=== PATIENT | female | born 1965 | race Caucasian/White ===

== ENCOUNTER 2018-01-28 15:59 | Inpatient (IN) ==
[2018-01-28] MEDS ORDERED: NORMAL SALINE 10 ML SYRINGE FLUSH IVP PRN ×2 (16:08→18:48)
[2018-01-28] MEDS ORDERED: Sodium Chloride 0.9% 1,000 ML PRIMARY IV ONE ×5 (16:08→22:13)
--- NOTE | 2018-01-28 16:11 | EKG ---
[address] [address] Measurements Intervals [place] Rate: 75 P: 69 [place]: 182 QRS: 34 QRSD: 81 T: 59 QT: 375 QTc: 405 Interpretive Statements SINUS RHYTHM WITH MARKED SINUS ARRHYTHMIA No previous ECG available for comparison Electronically Signed On 01-29-18 08:13:39 MDT by Ramírez Naidu MD [email or web address]
--- NOTE | 2018-01-28 16:27 | PDOC ---
General Adult HPI - General Chief Complaint: Palpitations Stated Complaint: "VERY ILL AND WHITE" THINKS HAVING A NM Date Seen by Provider: 01/28/18 Time Seen by Provider: 16:00 Source: POSITIVE: Patient Exam Limitations: POSITIVE: No limitations Nurse's Notes Reviewed & Considered: Yes - History of Present Illness Initial Comment: The patient is a 52-year-old female who is brought to the emergency department by EMS with complaints of weakness and lightheadedness. She states that she has not been feeling well for the past several days. She states that this morning she has had some epigastric abdominal pain. She states that despite not feeling well she went to work. While there she apparently became very weak and diaphoretic. She was concerned that she might be having a heart attack and EMS was called. She states that she has a prior history of heart attack 8 years ago that was treated in [place]. She states she did not have any stents or cardiac evaluation at that time. She states that that heart attack was stress related. Her family states that she has been under a lot of stress recently especially at work. Twelve-lead EKG done per EMS showed normal sinus rhythm with no acute ST segment changes. When I first evaluated her she denied any chest pain although she is describing some pain in the epigastric region. She was sick to her stomach and vomited shortly after EMS arrived. An IV was established and she was given Zofran. Her blood sugar was found to be in the 190s when EMS arrived. She was not hypotensive or tachycardic. She states that she takes medicine for thyroid. Have you received a tetanus shot in the past 10 years?: Unknown - Patient Home Medications Home Medications: Home Medications Levothyroxine Sodium [Synthroid] 125 mcg PO DAILY 01/28/18 - Patient Allergies Allergies/Adverse Reactions: Allergies 3 Allergy/AdvReac Type Severity Reaction Status Date / Time Latex, Natural Rubber AdvReac HIVES Verified 01/28/18 16:25 ROS - Limitations ROS Limitations: Other (please comment) (Patient is awake and answers questions however she is somewhat slow to answer) Constitution: DENIES: Fever Cardiovascular: REPORTS: Other (Her states that her blood pressure normally runs low). DENIES: Chest Pain, Heart Palpitations Respiratory: DENIES: Shortness Of Breath Neurological: REPORTS: Dizziness, Weakness (Generalized weakness). DENIES: Numbness, Fainting, Seizure Activity Gastrointestinal: REPORTS: Abdominal Pain, Nausea, Vomitting. DENIES: Diarrhea , Black Stools, Bloody Stools Musculoskeletal: REPORTS: Denies MS Symptoms Eyes: REPORTS: Denies Symptoms ENT: REPORTS: Denies Symptoms General Adult Exam - General Appearance General Appearance: POSITIVE: Other (The patient is awake and answers questions however she does appear acutely ill) - HEENT HEENT: POSITIVE: Head Inspection Nml, Eyes Inspection Nml, Ears Inspection Nml, Pharynx Inspect. Nml, Dry Mucous Membranes - Neck Neck: POSITIVE: Normal Inspection. NEGATIVE: Lymphadenopathy - Respiratory Respiratory: POSITIVE: No Respiratory Distress, Breath Sounds Normal - Cardiovascular Cardiovascular: POSITIVE: Regular Rate & Rhythm, No Murmur - Abdomen Abdomen: Soft: (All Quadrants), Normal Bowel Sounds: (All Quadrants), No Palpabale Mass: (All Quadrants), No Distention: (All Quadrants) Additional Abdominal Details: She does have tenderness in the epigastric region without guarding or rebound tenderness. - Skin Skin: POSITIVE: Normal Color, No Rash - Extremities Extremity: Normal ROM: (All Extremities), Normal Inspection: (All Extremities) - Neurological / Psychological Neurological: POSITIVE: Other (She has no focal neurologic deficits however she does have significant generalized weakness and finds it difficult to even raise her legs up off the bed) General Adult Progress - Results Reviewed by me Xrays/CTs/US Reviewed by me: Yes Discussed with Radiologist: Yes Radiology Findings: Initial portable chest x-ray is unremarkable. CT scan of her head shows no acute intracranial findings per radiologist, spherical lesion in the scalp likely secondary to sebaceous cyst. CT PE protocol of the chest shows no evidence of PE or any other acute findings per radiologist. CT scan of the abdomen and pelvis reveals: The lithiasis without evidence of cholecystitis. She also has ovarian cysts on both ovaries which are less than 3 cm, no other acute intra-abdominal findings per radiologist. CBC and BMP: 01/28/18 15:50 01/28/18 16:25 EKG Interpreted/Reviewed By Me:: Yes EKG Interpretation:: POSITIVE: Normal Sinus Rhythm, Normal Rate, Normal QRS, Normal ST/T - Patient's Progress MDM / ED Course: Initially the patient is normotensive with a blood pressure of 106/70 and her O2 sats are in the upper 90s to 100% on room air. Her pulse is in the 70s to 80s. Initial 12-lead EKG shows normal sinus rhythm with no acute ST segment or T-wave changes. She was given 1 L bolus of normal saline. - Consult Counseled: POSITIVE: Patient, Family, RE: Lab Results, RE: Radiology Results, RE : DX, RE: Need for F/U Patient Care Time - Estimated PCT Patient Care Time (In Minutes): 35 Vital Signs - Recent Vital Signs Vital Signs: Vital Signs (Last 8 hours) Temp Pulse Pulse Resp BP BP Pulse Ox 01/28/18 17:32 78 14 100/61 97 01/28/18 17:30 72 17 96 01/28/18 17:28 80 12 96 01/28/18 17:26 75 7 L 96 01/28/18 17:24 69 18 96 01/28/18 17:22 68 16 97 01/28/18 17:20 76 17 95 01/28/18 17:18 72 18 114/43 96 01/28/18 17:14 74 18 95 01/28/18 17:12 77 18 96 01/28/18 17:10 73 17 91 01/28/18 17:08 83 24 98 01/28/18 17:06 76 17 96 01/28/18 17:04 81 19 97 01/28/18 17:02 85 11 L 110/49 97 01/28/18 17:00 80 11 L 95 01/28/18 16:58 77 19 94 01/28/18 16:56 90 11 L 97 01/28/18 16:54 82 17 96 01/28/18 16:52 83 12 100 01/28/18 16:50 103 H 18 98 01/28/18 16:46 83 11 L 109/57 98 01/28/18 16:44 97 12 97 01/28/18 16:42 99 12 96 01/28/18 16:40 110 H 10 L 69 01/28/18 16:38 106 H 13 94 01/28/18 16:36 87 10 L 98 01/28/18 16:34 98 24 98 01/28/18 16:32 102 H 22 107/64 98 01/28/18 16:30 95 16 99 01/28/18 16:28 99 16 99 01/28/18 16:26 97 14 95 01/28/18 16:24 99 7 L 101/63 97 01/28/18 16:22 99 45 H 99 01/28/18 16:20 101 H 27 H 96 01/28/18 16:18 19 01/28/18 16:14 81 12 99 01/28/18 16:12 96 24 99 01/28/18 16:10 83 27 H 97 01/28/18 16:08 91 47 H 104/67 100 01/28/18 16:05 79 100 01/28/18 15:59 96.5 F L 81 18 104/67 97 - VS Reviewed Vital Signs Reviewed: Yes Discharge Clinical Impression: Near syncope, Epigastric abdominal pain, Vomiting Cholelithiasis Qualifiers: Cholelithiasis location: gallbladder Cholecystitis presence: without cholecystitis Biliary obstruction: without biliary obstruction Qualified Code(s) : K80.20 - Calculus of gallbladder without cholecystitis without obstruction Discharge Disposition: Admit to Inpatient Condition: Fair Date Decision to Admit to Inpatient: 01/28/18 Time Decision to Admit to Inpatient: 18:00
[2018-01-28] MEDS ORDERED: fentaNYL Inj 100 MCG/2 ML VIAL IVP ONE (16:28)
[2018-01-28 16:37] LABS: BASOPHILS # (AUTO) 0.08 10*3/UL; BASOPHILS % (AUTO) 0.6 % (0-1); EOSINOPHILS # (AUTO) 0.12 10*3/UL; EOSINOPHILS % (AUTO) 0.9 % (0-8); Hematocrit [HCT] 38.6 % (37.0-47.0); Hemoglobin [HGB] 13.4 g/dL (12.0-16.0); LYMPHOCYTES # (AUTO) 2.87 10*3/uL; MEAN CORPUSCULAR HEMOGLOBIN 30.2 PG (27-31); MEAN CORPUSCULAR HGB CONC 34.7 g/dL (33-37); MEAN CORPUSCULAR VOLUME 86.9 FL (81-99); MEAN PLATELET VOLUME 10.5 FL (7.4-12.2); MONOCYTES # (AUTO) 0.64 10*3/UL (0.3-0.8); NEUTROPHILS # (AUTO) 9.13 10*3/UL; RED BLOOD COUNT 4.44 10^6/uL (4.20-5.40)
[2018-01-28 16:39] LABS: PLATELET MORPHOLOGY COMMENT NORMAL MORPHOLOGY (NORM); RBC MORPHOLOGY COMMENT NORMAL MORPHOLOGY (NORM); WBC MORPHOLOGY COMMENT NORMAL MORPHOLOGY (NORM)
[2018-01-28 16:41] LABS: LIPASE 97 IU/L (23-300)
[2018-01-28 16:43] LABS: BLOOD UREA NITROGEN 14 mg/dL (7-22); SERUM ALBUMIN 4.4 g/dL (3.5-4.8)
--- NOTE | 2018-01-28 17:06 | DI ---
AP CHEST X-RAY, 01/28/2018 4:08 PM : Clinical History: Weakness. Epigastric pain. Previous Exam: None at this facility. There is no acute soft tissue or bony abnormality. Heart size is normal. There are slight increased m arkings behind the left heart, consistent with atelectasis. Mediastinal structures are normal. There are no pulmonary nodules. Reading: Normal chest x-ray.
--- NOTE | 2018-01-28 18:23 | DI ---
CT HEAD SCAN WITHOUT IV CONTRAST, 01/28/2018 4:08 PM : Clinical History: Generalized weakness. Previous Exam: None at this facility. Scans are obtained from the foramen magnum to the vertex without IV contrast. The 4th, 3rd, and lateral ventricles are of normal size, shape, position, and contour for the patient 's age. There are no abnormal areas of increased or decreased density. There is no significant atroph y. There are no extracerebral mantles or shift of the midline structures. Bone window evaluation is n ormal. The paranasal sinuses are normal. There is a 12 mm nodule of intermediate density located in t he subcutaneous fat of the posterior scalp at the junction between the occipital and parietal bones j ust to the left of midline. This may represent a sebaceous cyst. READIN. Normal non contrast CT head scan. 2. There is a 12 mm spherical lesion in the subcutaneous fat of the scalp just to the left of midlin e in the occipital parietal region. This may represent a sebaceous cyst.
--- NOTE | 2018-01-28 18:31 | DI ---
CT ANGIOGRAM OF THE CHEST, 01/28/2018 4:49 PM : Clinical History: Epigastric pain. Elevated D-dimer test. Previous Exam: None at this facility. Scans are performed from the base of the neck to the lower lung bases with IV contrast. 90 mL of Isov ue 370 was injected IV. Proprietary automated bolus tracking software was not used to verify the vitaliy ng of the injection. The base of the neck and thoracic inlet are normal. There are no abnormal axillary, supraclavicular, mediastinal, or hilar nodes. The heart is normal. Scan artifacts are generated by the patient's arms as well as the high density contrast. The pulmonary arteries are normal. There is no pulmonary arteri al hypertension. There is no evidence of pulmonary embolism or pulmonary infarction. The lungs are cl ear and there are no pulmonary nodules or masses. READIN. Normal CTA of the chest. There are no pulmonary emboli or pulmonary infarcts. 2. There is no acute infiltrate or effusion.
--- NOTE | 2018-01-28 18:41 | DI ---
CT ABDOMEN SCAN WITH IV CONTRAST, 01/28/2018 4:50 PM : Clinical History: Epigastric pain. Previous Exam: None at this facility. Scans are performed from the lower lung bases through the liver and kidneys with IV contrast. This is the same bolus of contrast used for the CT angiogram of the chest. No oral or rectal contrast was or dered. The lung bases are clear. The liver is normal. There are calcified laminated gallstones present, with out evidence of acute cholecystitis. The stomach is grossly normal and there is no free air. There is no abnormality of the spleen, pancreas, and adrenal glands. Both kidneys are normal in size, shape, position and contour. There is no hydronephrosis or hydroureter. No renal or ureteral calculi are pre sent. There are no abnormal retrocrural or periaortic nodes. No ascites is present. READIN. Cholelithiasis without evidence of cholecystitis. 2. The remainder the study is normal. CT PELVIS SCAN WITH IV CONTRAST, 01/28/2018 4:50 PM: Clinical History: See above. Previous Exam: None at this facility. Scans are performed from just superior to the umbilicus to the symphysis pubis with IV contrast. This is the same bolus of contrast used for the CT scans of the chest and abdomen. Scans through the lower abdomen and pelvis show no masses, enhancing lesions, or abnormal fluid colle ctions. There is no adenopathy. The appendix is normal. The small bowel, terminal ileum, and ileoceca l valve are normal. The colon is also normal. There is a very small umbilical hernia through which on ly mesenteric fat has herniated. The uterus is enlarged and measures 55 x 70 x 110 mm in the central uterine stripe is probably in the range of 15 mm. There is a low-density ovoid structure in the locat ion of the right ovary and this measures approximately 35 x 35 x 50 mm. There is a similar low-densit y lesion associated with the left ovary and this measures approximately 25 mm in diameter. READIN. There is enlargement of the uterus with the central uterine stripe measuring approximately 15 mm. 2. There are 2 low-density cystic-type lesions in the pelvis. On the right side, the lesion measures 35 x 35 x 50 mm and is consistent with a cyst of the right ovary. On the left side, there is a simil ar low-density lesion measuring 25 mm in diameter consistent with a left ovarian cyst.
[2018-01-28] MEDS ORDERED: CALCIUM CARBONATE 500 MG (TUMS) CHEWABLE TABLET PO PRN (18:48)
[2018-01-28] MEDS ORDERED: LIDOCAINE W/ SODIUM BICARB 0.5 ML SYR SUBD PRN (18:48)
[2018-01-28] MEDS ORDERED: LIDOCAINE HCL 2 % 10 ML JELLY URO-JECT TOPICAL PRN (19:58)
--- NOTE | 2018-01-28 20:44 | PDOC ---
HPI - History of Present Illness Date of Service: 01/28/18 Time of Service: 20:38 Chief Complaint: Altered with vomiting History of Present Illness: This very pleasant 52-year-old female that has hypothyroidism and just recently moved to [facility] and the [facility] this past May. She is accompanied by her here. It was reported that she works at the [employer], a restaurant in [place], and she had onset of vomiting, diaphoresis, and was brought into the emergency room for evaluation. Here, she complained of some epigastric pain and total body aches. The family reported that she's had fevers as high as 101 in the last few weeks and has had some headaches. The patient is very disoriented when I see her and quite dehydrated. She complains of total body aches but otherwise thinks she still at work and does not really answer questions, otherwise. She is dilated pupils that are responsive to light, but she has nystagmus on examination. Although she responds to verbal stimulation, she does not always answer questions appropriately. In my discussion with the patient's , the patient has not been feeling well the last few weeks. She's been complaining of increased back pain and total body aches. There were no other symptoms of nausea or vomiting prior. She reportedly does get cold sores. Outside of coming into the emergency room tonight, there were no other interventions. In the emergency room, she was worked up as a possible syncopal and/or chest pain type patient. A CT scan was found to be negative for pulmonary emboli, initial workup was negative for acute myocardial infarction, head CT scan was negative for any bleed or other issues, and a CT scan of the abdomen due to the abdominal pain showed on pelvic films and enlarged uterus with increased uterine stripe and some ovarian cysts, most likely. Past Medical History Medical History: 1. Hypothyroidism Surgical History: No prior surgeries. In my discussion with the family. She had some sort of LP in the past that caused a CODE BLUE. Apparently, I do not know the details of that. Pertinent Family History: No reported family history of heart disease or diabetes. In discussion with the patient's . I could not obtain this information from the patient. Past Social History: Smokes daily. Rarely drinks alcohol. . Has adult children that are described as healthy. 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 Moved to [place] from [place] and May 2017. Tobacco Use: Current Every Day Smoker In the Past 12 Months, Have Used or Abuse Any of the Following Substance: None Alcohol Use: Rarely Medication / Allergies Home Medications: Home Medications 3 Medication Instructions Recorded Confirmed Type Levothyroxine Sodium [Synthroid] 125 mcg PO DAILY 01/28/18 01/28/18 History Allergies/Adverse Reactions: Allergies 3 Allergy/AdvReac Type Severity Reaction Status Date / Time Latex, Natural Rubber AdvReac HIVES Verified 01/28/18 16:25 Review of Systems - Review of Systems ROS Unobtainable: Due to Mental Status (I could not obtain a complete review systems due to the patient's altered mental status and confusion. When I talked to the patient's , outside of total body aches, headaches, fevers and epigastric pain today with vomiting and marked diaphoresis, the review systems is negative.) Exam - Vitals Vital Signs: Vital Signs Height 5 ft 6 in Weight 183 lb 12.8 oz Vital Signs - Last Taken Temperature 96.5 F L 01/28/18 15:59 Pulse Rate 78 01/28/18 17:32 Respiratory Rate 14 01/28/18 17:32 Blood Pressure 100/61 01/28/18 17:32 Pulse Ox 97 01/28/18 17:32 - General Additional General Exam Details: The patient is quite dehydrated, has bone dry mucous membranes. Positive skin turgor - Head Head Exam: Normal Inspection, Normocephalic, Atraumatic - Eye Eye Exam: POSITIVE: No Scleral Icterus - ENT ENT Exam: POSITIVE: Mucous Membranes Dry - Neck Neck Exam: Normal Inspection, No Tenderness, No Lymphadenopathy, No Thyromegaly - Respiratory Respiratory Exam: POSITIVE: Clear to Auscultation - Bilaterally, Breathing Non Labored - Cardiovascular Cardiovascular Exam: POSITIVE: RRR, No Murmur, No Clicks, No Gallops, No Rubs, No JVD - GI/Abdominal GI/Abdominal Exam: POSITIVE: Normal Bowel Sounds, Non Distended, Soft Additional GI/Abdominal Exam Details: Has slight grimace with palpation to the epigastric area - Rectal Rectal Exam: POSITIVE: Deferred - External Exam: POSITIVE: Deferred Exam: POSITIVE: Ann Catheter in Place - Extremities Extremities Exam: POSITIVE: No Clubbing Present, No Edema Present, No Cyanosis Present - Back Back Exam: POSITIVE: No CVA Tenderness - Neurological Neurological Exam: POSITIVE: Alert, No Facial Droop, Speech Intact / Clear, Altered Additional Neurological Exam Details: Has nystagmus. Can move extremities but every time she moves, she moans in pain. She does not have jolt accentuation sign. She has some increase in her head pain when she flexes her chin to her chest. She has some increase in her back pain when she flexes her knees. - Integumentary Integumentary Exam: POSITIVE: Normal Color, Warm, Dry, Intact Additional Integumentary Exam Details: Positive skin turgor suggesting dehydration. Has sebaceous cyst on the right upper edge of the scapula. - Central Line Examination Central Line Present on Admission: No Results - Labs CBC and BMP: 01/28/18 15:50 01/28/18 16:25 Additional Lab Results: Laboratory Results 01/28/18 01/28/18 01/28/18 Range/Units 15:50 15:50 16:25 WBC 12.87 H (4.8-10.8) 10^3/uL RBC 4.44 (4.20-5.40) 10^6/uL Hgb 13.4 (12.0-16.0) g/dL Hct 38.6 (37.0-47.0) % MCV 86.9 (81-99) FL MCH 30.2 (27-31) PG MCHC 34.7 (33-37) g/dL RDW Std Deviation 42.7 (39-50) fL RDW Coeff of Lopez 13.8 (11.5-14.5) % Plt Count 312 (140-350) 10*3/uL MPV 10.5 (7.4-12.2) FL Immature Gran % (Auto) 0.2 (0-5) % Neut % (Auto) 71.0 (50-80) % Lymph % (Auto) 22.3 (10-50) % [place] % (Auto) 5.0 (5-15) % Eos % (Auto) 0.9 (0-8) % Baso % (Auto) 0.6 (0-1) % Immature Gran # (Auto) 0.03 10*3/UL Neut # (Auto) 9.13 10*3/UL Lymph # (Auto) 2.87 10*3/uL [place] # (Auto) 0.64 (0.3-0.8) 10*3/UL Eos # (Auto) 0.12 10*3/UL Baso # (Auto) 0.08 10*3/UL WBC Morphology Comment Normal morphology (NORM) Plt Morphology Comment Normal morphology (NORM) RBC Morph Comment Normal morphology (NORM) D-Dimer 1.35 H (0.00-0.59) mg/L Sodium 138 (135-145) meq/L Potassium 3.8 (3.8-5.2) meq/L Chloride 106 (98-112) meq/L Carbon Dioxide 15 L (23-33) meq/L Anion Gap 17 (5-20) BUN 14 (7-22) mg/dL Creatinine 0.8 (0.50-1.20) mg/dL Estimated GFR > 60 (>60 ml/min/1.73m(2)) BUN/Creatinine Ratio 17.50 (6-20) Glucose 173 H (78-110) mg/dL Calculated Osmolality 290.0 (267-292) mOsm/kg Lactic Acid (0.70-2.10) MMOL/L Calcium 9.5 (8.7-10.7) mg/dL Magnesium 1.8 (1.6-2.4) mg/dL Total Bilirubin 0.3 (0.3-1.2) mg/dL AST 17 (8-39) IU/L ALT 32 (9-52) IU/L Alkaline Phosphatase 66 (38-126) IU/L Troponin I (< 0.040) ng/mL C-Reactive Protein 0.8 (0.0-0.9) mg/dL Total Protein 7.6 (6.1-8.0) g/dL Albumin 4.4 (3.5-4.8) g/dL Globulin 3.2 (2.50-4.10) g/dL Albumin/Globulin Ratio 1.30 (1.3-2.0) mg/g Amylase (30-110) U/L Lipase (23-300) IU/L Serum Alcohol < 10 (0-10) mg/dL 01/28/18 01/28/18 01/28/18 Range/Units 16:25 16:25 16:25 WBC (4.8-10.8) 10^3/uL RBC (4.20-5.40) 10^6/uL Hgb (12.0-16.0) g/dL Hct (37.0-47.0) % MCV (81-99) FL MCH (27-31) PG MCHC (33-37) g/dL RDW Std Deviation (39-50) fL RDW Coeff of Lopez (11.5-14.5) % Plt Count (140-350) 10*3/uL MPV (7.4-12.2) FL Immature Gran % (Auto) (0-5) % Neut % (Auto) (50-80) % Lymph % (Auto) (10-50) % [place] % (Auto) (5-15) % Eos % (Auto) (0-8) % Baso % (Auto) (0-1) % Immature Gran # (Auto) 10*3/UL Neut # (Auto) 10*3/UL Lymph # (Auto) 10*3/uL [place] # (Auto) (0.3-0.8) 10*3/UL Eos # (Auto) 10*3/UL Baso # (Auto) 10*3/UL WBC Morphology Comment (NORM) Plt Morphology Comment (NORM) RBC Morph Comment (NORM) D-Dimer (0.00-0.59) mg/L Sodium (135-145) meq/L Potassium (3.8-5.2) meq/L Chloride (98-112) meq/L Carbon Dioxide (23-33) meq/L Anion Gap (5-20) BUN (7-22) mg/dL Creatinine (0.50-1.20) mg/dL Estimated GFR (>60 ml/min/1.73m(2)) BUN/Creatinine Ratio (6-20) Glucose (78-110) mg/dL Calculated Osmolality (267-292) mOsm/kg Lactic Acid 1.7 (0.70-2.10) MMOL/L Calcium (8.7-10.7) mg/dL Magnesium (1.6-2.4) mg/dL Total Bilirubin (0.3-1.2) mg/dL AST (8-39) IU/L ALT (9-52) IU/L Alkaline Phosphatase (38-126) IU/L Troponin I < 0.012 (< 0.040) ng/mL C-Reactive Protein (0.0-0.9) mg/dL Total Protein (6.1-8.0) g/dL Albumin (3.5-4.8) g/dL Globulin (2.50-4.10) g/dL Albumin/Globulin Ratio (1.3-2.0) mg/g Amylase 49 (30-110) U/L Lipase 97 (23-300) IU/L Serum Alcohol (0-10) mg/dL - EKG Data -: EKG Interpreted by Me Rate: Normal EKG Shows Normal: Sinus Rhythm - Imaging Status: Image Reviewed by Me (Chest x-ray appeared normal on my view of the study, no evidence of pneumonia. There is no evidence of pneumonia on the CT scan of the chest on my view. The head CT scan does not show any evidence of acute intracranial bleeding. I noted the reports on the abdominal pelvis CT scans. When I did look at the abdominal pelvis CT scans, I can see the gallstones pretty clearly on exam.) Assessment and Plan - Patient Problems (1) Altered mental status Current Visit: Yes Status: Acute Code(s): R41.82 - Altered mental status, unspecified Qualifiers: Altered mental status type: disorientation Qualified Code(s): R41.0 - Disorientation, unspecified (2) Hypothyroidism Current Visit: Yes Status: Acute Code(s): E03.9 - Hypothyroidism, unspecified Qualifiers: Hypothyroidism type: acquired Qualified Code(s): E03.9 - Hypothyroidism, unspecified (3) Body aches Current Visit: Yes Status: Acute Code(s): R52 - Pain, unspecified (4) Cholelithiasis Current Visit: Yes Status: Acute Code(s): K80.20 - Calculus of gallbladder without cholecystitis without obstruction Qualifiers: Cholelithiasis location: gallbladder Cholecystitis presence: without cholecystitis Biliary obstruction: without biliary obstruction Qualified Code(s): K80.20 - Calculus of gallbladder without cholecystitis without obstruction - Assessment / Plan Additional Assessment/Plan Details: The altered mental status in this patient with her presenting symptoms of headaches, intermittent fevers reported. Home, diaphoresis, total body aches, make me very concerned for possible meningitis. I do not have a source for the elevation in white blood cell counts at this point. We will get a urinalysis with culture as well and place a Ann catheter. Overall, however, I feel like there could be a central nervous system infection. I discussed the possibility of doing a lumbar puncture with the patient's family , in particular her as the patient was altered enough and confused that she thought she was at her place of work that I felt we needed his consent permission to do the procedure. He agreed after discussion of risks and benefits. Please see the procedure discussion separately. Ultimately, I was unsuccessful at obtaining spinal fluid, so we will get the radiologist to do this under fluoroscopy if necessary. Given that the patient does have a history of cold sores, soon as we obtain spinal fluid. I'll start some acyclovir along with potential antibiotic coverage. If her mental status remains on get her transferred to a facility with infectious disease doctor. This will depend on spinal fluid studies initially. IV fluids and bolus right away. Ann catheter placement. Discussed with family in detail and they agree to the plan.
[2018-01-28 20:58] LABS: AMPHETAMINE SCREEN NEGATIVE (NEG); CANNABINOID SCREEN,URINE POSITIVE (NEG); COCAINE SCREEN NEGATIVE (NEG); METHADONE URINE SCREEN NEGATIVE (NEG); METHAMPHETAMINES SCREEN,URINE NEGATIVE (NEG); OPIATE SCREEN,URINE NEGATIVE (NEG); URINE SAMPLE TYPE VOIDED SPECIMEN; URINE SPECIFIC GRAVITY - MAN 1.005
--- NOTE | 2018-01-28 21:08 | PROCEDURE1 ---
Procedure - - Date and Time of Service: 01/28/2018, 2100 Procedure Performed: Lumbar Puncture : Diagnostic Procedure Note: Procedure performed: Lumbar puncture Indication for procedure: Description of procedure: Patient provided consent for lumbar puncture given risks and benefits discussion including risk of high spinal tap, bleeding, infection, spinal headache, and potential for neurologic injury. Benefits were described as improving diagnostic workup revealed and diagnosing conditions that needed to be treated such as meningitis or other. The patient's anterior superior iliac spine was palpated and the L2-L3 interspinous process space was palpated and marked. The patient was in the lateral recumbent in position. The spinous processes were palpated as well. Once I felt sure about the anatomic location of the L3-L4 space, this was marked. The patient was then prepped and draped in the usual fashion. Lidocaine was used for local anesthesia. A 3 inch spinal needle needle was then inserted with a bevel up and angled towards the umbilicus. Unfortunately, after 3 attempts, I could not obtain fluid. The patient had significant pain with the procedure, although once the needle was withdrawn. Her pain with completely recede and subside. However, she moved too much during the procedure to allow the successful passage of the needle into the space to obtain spinal fluid. ll. Disposition: Patient remains in the medical floor and I will arrange for radiology to do this under fluoroscopy. She had significant pain despite local anesthesia.
[2018-01-28 22:12] LABS: APPEARANCE, CSF CLEAR (CLEAR); COLOR, CSF COLORLESS (COLOR)
[2018-01-28 22:18] LABS: BILIRUBIN,URINE NEGATIVE (NEG); CLARITY,URINE CLEAR (CLEAR); COLOR,URINE YELLOW (Y); GLUCOSE, URINE (UA) NEGATIVE (NEG); OCCULT BLOOD,URINE NEGATIVE (NEG); PROTEIN,URINE NEGATIVE (NEG); UROBILINOGEN,URINE 0.2 EU/dL (0.2)
[2018-01-28 22:19] LABS: URINE SAMPLE TYPE CLEAN CATCH URINE
[2018-01-28 22:54] LABS: HEMOGLOBIN A1C 5.23 % (4.2-6.0)
[2018-01-29] MEDS: Acetaminophen 1000mg Inj 1,000 MG/100 ML VIAL IV PRN ×2 (00:04→21:55)
[2018-01-29] MEDS ORDERED: Sodium Chloride 0.9% 1,000 ML PRIMARY IV SCH (00:16)
[2018-01-29 05:21] LABS: BASOPHILS # (AUTO) 0.03 10*3/UL; BASOPHILS % (AUTO) 0.5 % (0-1); EOSINOPHILS # (AUTO) 0.12 10*3/UL; Hematocrit [HCT] 31.8 % (37.0-47.0); Hemoglobin [HGB] 10.7 g/dL (12.0-16.0); MEAN CORPUSCULAR HEMOGLOBIN 29.9 PG (27-31); MEAN CORPUSCULAR HGB CONC 33.6 g/dL (33-37); MEAN CORPUSCULAR VOLUME 88.8 FL (81-99); MEAN PLATELET VOLUME 10.8 FL (7.4-12.2); MONOCYTES # (AUTO) 0.37 10*3/UL (0.3-0.8); MONOCYTES % (AUTO) 6.2 % (5-15); NEUTROPHILS # (AUTO) 3.33 10*3/UL; NEUTROPHILS % (AUTO) 55.9 % (50-80); RED BLOOD COUNT 3.58 10^6/uL (4.20-5.40)
[2018-01-29 05:27] LABS: BLOOD UREA NITROGEN 9 mg/dL (7-22); CHOL/HDL RATIO 3.02 RATIO (0-4.0); PLATELET MORPHOLOGY COMMENT NORMAL MORPHOLOGY (NORM); RBC MORPHOLOGY COMMENT NORMAL MORPHOLOGY (NORM); SERUM ALBUMIN 2.8 g/dL (3.5-4.8); SERUM CHOLESTEROL 106 mg/dL (120-200); WBC MORPHOLOGY COMMENT NORMAL MORPHOLOGY (NORM)
[2018-01-29] MEDS: LEVOTHYROXINE 125 MCG TABLET PO SCH (05:45)
--- NOTE | 2018-01-29 06:59 | DI ---
DIAGNOSTIC LUMBAR PUNCTURE, 01/28/2018 8:38 PM: Clinical History: Altered mental status. Headache. Recent fevers. Previous Exam: None at this facility. A "time out" session was performed to verify the patient's name and date of with her ID ruben [email or web address] prior to obtaining informed signed consent prior for this procedure. The patient's was info rmed of benefits and risks, to include but not be limited to: allergies to medications (skin preparat ion agents and the local anesthetic), infection, and "spinal" headaches. The lower back was prepped w ith ChloraPrep with Tint. 1% lidocaine without epinephrine was used for intradermal and subcutaneous local anesthesia. Under fluoroscopic guidance, a 22 gauge spinal needle was then introduced into the spinal canal at the L4-5 disc space. A single atraumatic pass was performed and this revealed an open ing pressure of 17.25 cm of water. Clear colorless CSF was obtained and was collected in 4 sequential aliquots of 1 mL each. The closing pressure was 13.75 cm water. The patient tolerated the procedure well and was in stable, unchanged condition. The patient was pedro sported back to her room. Reading: Uncomplicated lumbar puncture as above.
[2018-01-29] MEDS ORDERED: ACYCLOVIR 500 MG VIAL IV ONE (07:16)
[2018-01-29] MEDS: ASPIRIN 81 MG (BABY) CHEWABLE TABLET PO SCH (08:39)
[2018-01-29] MEDS: Lactated Ringers 1,000 ML PRIMARY IV SCH ×4 (08:40→23:44)
--- NOTE | 2018-01-29 08:40 | PDOC(PROG) ---
Date and Time of Service: 01/29/2018 8:35 AM Interval History: Subjective Patient was brought to the hospital last night because of dizziness, lightheadedness, weakness and body aches. She did report some epigastric pain. The pain in the epigastrium according to her being going on for about 2 months on and off. She did report some fever at home. She is under stress. She's been taking ibuprofen for the body aches. Appetite was less yesterday she didn't eat much. Apparently she was confused. She had multiple studies last night and was given fluids. Today she is still weak and tired but she is with it. She did report a history of duodenal ulcer before and she had a history also of cervical cancer she had a follow-up about was 2 months ago and is sounded that she had a Pap smear and they did tell her to come back but she did not follow up with them. Objective : Data - Labs CBC and BMP: 01/29/18 03:53 01/29/18 03:53 Objective : Exam - General General Appearance: Cooperative Additional General Exam Details: Looks tired, still dry mucous membranes. - Head Head Exam: Normal Inspection - Eye Eye Exam: Normal Appearance - ENT ENT Exam: Normal Exam - Neck Neck Exam: Normal Inspection - Respiratory Respiratory Exam: Clear to Auscultation - Bilaterally - Cardiovascular Cardiovascular Exam: RRR - GI/Abdominal GI/Abdominal Exam: Normal Bowel Sounds, Non Tender, Non Distended, Soft, No Organomegaly - Rectal Rectal Exam: Deferred - External Exam: Deferred Exam: Deferred - Extremities Extremities Exam: Normal Inspection - Back Back Exam: Normal Inspection - Neurological Neurological Exam: Alert, Oriented x 3, CN II-XII Intact, Moves All Extremities Equally - Psychiatric Psychiatric Exam: Normal Affect Assessment and Plan - Patient Problems (1) Altered mental status Current Visit: Yes Status: Acute Comment: Seems to be resolved. Probably she had some viral syndrome plus dehydration. I think we'll continue with the fluid will switch to Lactate instead of the normal saline because of the hyperchloremic acidosis. Code(s): R41.82 - Altered mental status, unspecified Qualifiers: Altered mental status type: disorientation Qualified Code(s): R41.0 - Disorientation, unspecified (2) Hypothyroidism Current Visit: Yes Status: Acute Comment: Same medications Code(s): E03.9 - Hypothyroidism, unspecified Qualifiers: Hypothyroidism type: acquired Qualified Code(s): E03.9 - Hypothyroidism, unspecified (3) Body aches Current Visit: Yes Status: Acute Comment: Probably viral syndrome in addition she has a history of fibromyalgia. Code(s): R52 - Pain, unspecified (4) Cholelithiasis Current Visit: Yes Status: Acute Comment: We'll do ultrasound of the abdomen to look at the gallbladder and may discuss with the surgeon. I think though probably more like an outpatient procedure. Her recurrent abdominal pain maybe secondary to the cholelithiasis. She was put also on Protonix as she had the history of duodenal ulcer before. Code(s): K80.20 - Calculus of gallbladder without cholecystitis without obstruction Qualifiers: Cholelithiasis location: gallbladder Cholecystitis presence: without cholecystitis Biliary obstruction: without biliary obstruction Qualified Code(s): K80.20 - Calculus of gallbladder without cholecystitis without obstruction (5) Enlarged uterus Current Visit: Yes Status: Acute Comment: She will need follow-up as an outpatient for that. Code(s): N85.2 - Hypertrophy of uterus
[2018-01-29] MEDS ORDERED: Pantoprazole Inj 40 MG in Normal Saline Flush 10 ML IVP SCH (09:00)
[2018-01-29] MEDS ORDERED: Ertapenem Inj 1 GM in Sodium Chloride 0.9% 100 ML IV SCH (09:45)
--- NOTE | 2018-01-29 10:55 | DI ---
GALLBLADDER AND LIVER ULTRASOUND, 01/29/2018 8:30 AM: Clinical History: Abdominal pain. Previous Exam: None at this facility. Technique: Scans are performed through the right upper quadrant in multiple projections. The patient was rolled from side to side and the gallbladder was balloted with the probe to facilitate visualizat ion of small gallstones. The gallbladder is well distended and has a normal wall thickness. There are multiple gallstones visu alized with acoustical shadowing. These gallstones ranging in size up to 7-8 mm. There is no Steinberg's sign. The common bile duct measures 5 mm. The pancreas is visualized from the head to the body and i s normal. The liver has a normal sonographic texture and is enlarged by ultrasound criteria. The righ t kidney, IVC, and aorta are normal. Readin. Cholelithiasis without evidence of cholecystitis. There is no Steinberg's sign. The common bile duct measures 5 mm. 2. Hepatomegaly by ultrasound criteria. 3. The right kidney, pancreas, IVC, and aorta are normal.
[2018-01-29] MEDS: Potassium Chloride Tab 10 MEQ TAB PO SCH ×2 (11:48→20:09)
--- NOTE | 2018-01-29 17:10 | CONSULT ---
Consult Note - Consult Consult Date: 01/29/18 Reason for Consult: PreOp Consulation : General Surgery Requesting Physician: Dr. Ruffin Primary Care Provider: NONE NONE - History of Present Illness History of Present Illness: This is a 52-year-old female who comes in with a history of having generalized body aches. Nausea. Vomiting. She also was confused and dehydrated. Patient came in with a slightly elevated white count but white count had returned to normal by today. She had a CT scan showed cholelithiasis but no evidence of acute cholecystitis. Patient had an ultrasound today that showed cholelithiasis with no evidence of disruption or infection. Patient tells me that she is actually feeling better now. She has been using T HC oils underneath the tongue for fibromyalgias. She recently got a new supply of this. Review of Systems - Constitutional Constitutional: REPORTS: Fever / Chills - Integumentary Integumentary: REPORTS: Negative System Review - Mouth/Throat Mouth/Throat Exam: REPORTS: Negative System Review - Respiratory Respiratory: REPORTS: Cough - Cardiovascular Cardiovascular: REPORTS: Negative System Review - Gastrointestinal Gastrointestinal / Abdominal: REPORTS: Nausea, Vomiting. DENIES: Diarrhea, Constipation, Abdominal Pain, Bloody Stool, Poor Appetite, Heartburn, Regurgitation, Bloating, Lactose Intolerance, Melena, Bright Red Blood per Rectum, Other, See HPI - Genitourinary Genitourinary: REPORTS: Negative System Review - Musculoskeletal Musculoskeletal: REPORTS: Back Pain, Neck Pain - Neurological Neurologic: REPORTS: Confusion. DENIES: Negative System Review, Headache, Numbness/Paresthesia, Tremors, Weakness, Seizures, Head Trauma, LOC, Dizziness, Memory Loss, Difficulty Walking, Incoordination, Other, See HPI - Psychiatric Psychiatric: DENIES: Negative System Review, Anxiety, Depressed, Anhedonia, Hopelessness, Hospitalization, Panic, Sadness, Suicidality, Tearfullness, Other , See HPI Past Medical History Medical History: 1. Hypothyroidism Surgical History: No prior surgeries. In my discussion with the family. She had some sort of LP in the past that caused a CODE BLUE. Apparently, I do not know the details of that. Pertinent Family History: No reported family history of heart disease or diabetes. In discussion with the patient's . I could not obtain this information from the patient. Past Social History: Smokes daily. Rarely drinks alcohol. . Has adult children that are described as healthy. Works at the [employer] here in [place], [place]. Moved to [place] from [place] and May 2017. Tobacco Use: Current Every Day Smoker In the Past 12 Months, Have Used or Abuse Any of the Following Substance: None Alcohol Use: Rarely Medication / Allergies Home Medications: Home Medications 3 Medication Instructions Recorded Confirmed Type Levothyroxine Sodium [Synthroid] 125 mcg PO DAILY 01/28/18 01/28/18 History Allergies/Adverse Reactions: Allergies 3 Allergy/AdvReac Type Severity Reaction Status Date / Time Latex, Natural Rubber AdvReac HIVES Verified 01/28/18 16:25 Results - Labs CBC and BMP: 01/29/18 03:53 01/29/18 03:53 Exam - Vitals Vital Signs: Vital Signs Temperature 97.6 F Temperature Source Temporal Artery Scan Pulse Rate [Pulse Oximeter] 52 Pulse Rate 66 Respiratory Rate 18 Blood Pressure [Right Arm] 90/60 Blood Pressure [Left Arm] 87/45 Pulse Ox 96 Oxygen Delivery Method Room Air Weight 193 lb - General General Appearance: No Acute Distress, Cooperative - Neck Neck Exam: Normal Inspection, Full ROM - GI/Abdominal GI/Abdominal Exam: POSITIVE: Non Tender, Non Distended Additional GI/Abdominal Exam Details: No rebound negative Steinberg sign Assessment and Plan - Patient Problems (1) Cholelithiasis Current Visit: Yes Status: Acute Code(s): K80.20 - Calculus of gallbladder without cholecystitis without obstruction Qualifiers: Cholelithiasis location: gallbladder Cholecystitis presence: without cholecystitis Biliary obstruction: without biliary obstruction Qualified Code(s): K80.20 - Calculus of gallbladder without cholecystitis without obstruction - Assessment / Plan Additional Assessment/Plan Details: The patient has gallstones I do not think cholelithiasis is causing the patient' s hospital admission. I would not recommend gallbladder surgery at this time. I gladly see her in the outpatient setting to discuss a cholecystectomy.
[2018-01-29 21:04] VITALS: RESP 20
[2018-01-29] MEDS ORDERED: IBUPROFEN 400 MG TABLET PO PRN (21:56)
[2018-01-30 05:33] VITALS: TEMP 97.1
[2018-01-30] MEDS: LEVOTHYROXINE 125 MCG TABLET PO SCH (05:45)
[2018-01-30] MEDS: Lactated Ringers 1,000 ML PRIMARY IV SCH (05:46)
[2018-01-30 05:50] LABS: BASOPHILS # (AUTO) 0.03 10*3/UL; BASOPHILS % (AUTO) 0.7 % (0-1); EOSINOPHILS # (AUTO) 0.19 10*3/UL; EOSINOPHILS % (AUTO) 4.2 % (0-8); Hematocrit [HCT] 31.3 % (37.0-47.0); Hemoglobin [HGB] 10.4 g/dL (12.0-16.0); LYMPHOCYTES # (AUTO) 1.82 10*3/uL; MEAN CORPUSCULAR HEMOGLOBIN 29.7 PG (27-31); MEAN CORPUSCULAR HGB CONC 33.2 g/dL (33-37); MEAN CORPUSCULAR VOLUME 89.4 FL (81-99); MEAN PLATELET VOLUME 10.2 FL (7.4-12.2); MONOCYTES # (AUTO) 0.34 10*3/UL (0.3-0.8); MONOCYTES % (AUTO) 7.6 % (5-15); NEUTROPHILS % (AUTO) 46.9 % (50-80)
[2018-01-30 05:51] LABS: VENOUS PH 7.44 (7.32-7.42)
[2018-01-30 05:58] LABS: PLATELET MORPHOLOGY COMMENT NORMAL MORPHOLOGY (NORM); RBC MORPHOLOGY COMMENT NORMAL MORPHOLOGY (NORM); WBC MORPHOLOGY COMMENT NORMAL MORPHOLOGY (NORM)
[2018-01-30 06:02] LABS: BLOOD UREA NITROGEN 10 mg/dL (7-22); BUN/CREATININE RATIO 14.28 (6-20); SERUM ALBUMIN 2.8 g/dL (3.5-4.8)
--- NOTE | 2018-01-30 07:49 | DCSUMMARY ---
Hospitalization Summary Admit Date: 01/28/2018 Discharge Date: 01/30/18 Hospital Course: Discharge diagnoses 1. Probable viral illness resolved 2. Cholelithiasis 3. Hypothyroidism 4. Enlarged uterus with the central uterine stripe measuring 15 mm 5. Right and left ovarian cyst 6. Normal anion gap acidosis improved 7. History of cervical cancer before 8. History of fibromyalgia Hospital course This is a 52 years old female with medical history significant for history of hypothyroidism was brought to the hospital for evaluation because of vomiting, sweating body aches and dizziness. There was also a report of fever at home as high as 101. Patient had quite a few tests including a CT of the head which was negative, CT of the chest was negative for PE a CT of the abdomen showed cholelithiasis and enlarged uterus with the left and right ovarian cyst. Patient was given fluids and was admitted to the hospital by Dr. Murphy please see his note. He was concerned about the confusion that she had when he saw her so an LP was done which showed only 4 WBCs and 2 red blood cells. Protein was elevated at 53. Gram stain was negative for WBC he did start her on acyclovir. I saw the patient the next day she was not confused and no neck stiffness was present. She was with it but looked tired thought that she still mildly dehydrated, I thought she maybe had some viral illness and that caused fever, the vomiting and the generalized body aches. The CSF to me findings looks normal with the exception of elevated protein which is nonspecific so we DC the acyclovir. the picture did not fit herpes encephalitis. Her blood pressure was borderline so we continued with fluid and I elected to give her 1 dose of for Invanz until we have the culture result. Blood Culture result came back negative so we stopped the Invanz. On the day of discharge she looked much better she, felt a lot better she tolerated diet and we DC the fluid and the Ann she walked around did well so we decided to discharge her home. What brought her here is not entirely clear probably some viral illness that's resolved with supportive care. She did mention though that she's been having intermittent abdominal pain so we did ultrasound of the gallbladder which showed cholelithiasis so I did speak with Dr. Mireles who recommended that she follow-up as an outpatient and then they will discuss cholecystectomy. The patient herself she said she will decide on which surgeon she will follow-up with. She will follow-up with her primary. I did tell her about other abnormalities on the CT she said she followed up with [facility] and it sounded that she had some abnormal Pap smear based on her description so she'll follow-up with them regarding the enlarged uterus. Here urine tox was positive for marijuana, she did admit to smoking weed few days prior. She said she's been using the BCD oil for a long time and she is dismissing the idea of her presentation been related to that, which apparently Dr. Jamison brought up to her. She did have a Normal anion gap metabolic acidosis which got worsened initially , which I think the worsening probably secondary to the normal saline and we did switch her to lactate and her bicarbonate improved and she is compensating for the that. This need F/U with her PCP. Laboratory Results 01/30/18 01/30/18 01/30/18 Range/Units 05:30 05:30 05:46 WBC 4.48 L (4.8-10.8) 10^3/uL RBC 3.50 L (4.20-5.40) 10^6/uL Hgb 10.4 L (12.0-16.0) g/dL Hct 31.3 L (37.0-47.0) % MCV 89.4 (81-99) FL MCH 29.7 (27-31) PG MCHC 33.2 (33-37) g/dL RDW Std Deviation 44.1 (39-50) fL RDW Coeff of Lopez 13.9 (11.5-14.5) % Plt Count 180 (140-350) 10*3/uL MPV 10.2 (7.4-12.2) FL Immature Gran % (Auto) 0 (0-5) % Neut % (Auto) 46.9 L (50-80) % Lymph % (Auto) 40.6 (10-50) % [place] % (Auto) 7.6 (5-15) % Eos % (Auto) 4.2 (0-8) % Baso % (Auto) 0.7 (0-1) % Immature Gran # (Auto) 0 10*3/UL Neut # (Auto) 2.10 10*3/UL Lymph # (Auto) 1.82 10*3/uL [place] # (Auto) 0.34 (0.3-0.8) 10*3/UL Eos # (Auto) 0.19 10*3/UL Baso # (Auto) 0.03 10*3/UL WBC Morphology Comment Normal morphology (NORM) Plt Morphology Comment Normal morphology (NORM) RBC Morph Comment Normal morphology (NORM) VBG pH 7.44 H (7.32-7.42) VBG pCO2 23 L (45-55) mmHg VBG HCO3 16 L (22-26) mmol/L VBG Base Excess -9 L (-2-2) MMOL/L Sodium 141 (135-145) meq/L Potassium 4.2 (3.8-5.2) meq/L Chloride 114 H (98-112) meq/L Carbon Dioxide 18 L (23-33) meq/L Anion Gap 9 (5-20) BUN 10 (7-22) mg/dL Creatinine 0.7 (0.50-1.20) mg/dL Estimated GFR > 60 (>60 ml/min/1.73m(2)) BUN/Creatinine Ratio 14.28 (6-20) Glucose 92 (78-110) mg/dL Calculated Osmolality 290.0 (267-292) mOsm/kg Calcium 8.8 (8.7-10.7) mg/dL Total Bilirubin 0.1 L (0.3-1.2) mg/dL AST 22 (8-39) IU/L ALT 36 (9-52) IU/L Alkaline Phosphatase 57 (38-126) IU/L Total Protein 5.5 L (6.1-8.0) g/dL Albumin 2.8 L (3.5-4.8) g/dL Globulin 2.7 (2.50-4.10) g/dL Albumin/Globulin Ratio 1.00 L (1.3-2.0) mg/g Discharge instruction Diet regular Activity as tolerated Medication Current Medication(s) 3 Medication Instructions Recorded Confirmed Type Levothyroxine Sodium [Synthroid] 125 mcg PO DAILY 01/28/18 01/28/18 History Acetaminophen [Tylenol] 650 mg PO Q6H PRN #1 tablet.sa 01/30/18 Rx F/U with PCP 1-2 weeks, with [facility] for enlarged uterus. patient will decide on which surgeon she will F/U for Cholelithiasis Condition at discharge was stable for discharge. Exam - Vitals Vital Signs: Vital Signs Temperature 97.1 F Temperature Source Temporal Artery Scan Pulse Rate [Pulse Oximeter] 62 Pulse Rate 68 Respiratory Rate 20 Blood Pressure [Right Arm] 107/54 Blood Pressure [Left Arm] 87/45 Pulse Ox 93 Oxygen Delivery Method Room Air Weight 193 lb - General General Appearance: No Acute Distress, Cooperative, Obese Additional General Exam Details: Looks much better than yesterday - Head Head Exam: Normal Inspection - Eye Eye Exam: POSITIVE: Normal Appearance - ENT ENT Exam: POSITIVE: Normal Exam - Neck Neck Exam: Normal Inspection - Respiratory Respiratory Exam: POSITIVE: Clear to Auscultation - Bilaterally - Cardiovascular Cardiovascular Exam: POSITIVE: RRR - GI/Abdominal GI/Abdominal Exam: POSITIVE: Normal Bowel Sounds, Non Distended, Soft, No Organomegaly Additional GI/Abdominal Exam Details: Minimal tenderness in the epigastrium - External Exam: POSITIVE: Deferred Exam: POSITIVE: Deferred - Extremities Extremities Exam: POSITIVE: Normal Inspection - Back Back Exam: POSITIVE: Normal Inspection - Neurological Neurological Exam: POSITIVE: Alert, Oriented x 3, CN II-XII Intact, Speech Intact / Clear, Moves All Extremities Equally - Psychiatric Psychiatric Exam: POSITIVE: Normal Affect - Integumentary Integumentary Exam: POSITIVE: Normal Color Patient Problems - Patient Problem List (1) Altered mental status Status: Acute Code(s): R41.82 - Altered mental status, unspecified Qualifiers: Altered mental status type: disorientation Qualified Code(s): R41.0 - Disorientation, unspecified Category: Medical (2) Hypothyroidism Status: Acute Code(s): E03.9 - Hypothyroidism, unspecified Qualifiers: Hypothyroidism type: acquired Qualified Code(s): E03.9 - Hypothyroidism, unspecified Category: Medical (3) Body aches Status: Acute Code(s): R52 - Pain, unspecified Category: Medical (4) Cholelithiasis Status: Acute Code(s): K80.20 - Calculus of gallbladder without cholecystitis without obstruction Qualifiers: Cholelithiasis location: gallbladder Cholecystitis presence: without cholecystitis Biliary obstruction: without biliary obstruction Qualified Code(s): K80.20 - Calculus of gallbladder without cholecystitis without obstruction Category: Medical (5) Enlarged uterus Status: Acute Code(s): N85.2 - Hypertrophy of uterus Category: Medical
[2018-01-30 09:02] VITALS: BP 110/54; O2SAT 94
[2018-01-30] MEDS: ASPIRIN 81 MG (BABY) CHEWABLE TABLET PO SCH (09:35)
== END 2018-01-30 10:27 | disposition home or self-care (01) | DRG 866 ==
LOC: ER 15:59 → MED/SURG 15:59
PROVIDERS: ADMIT Family Medicine; ATTEND Family Medicine